=== PATIENT | male | born 1985 | race Caucasian/White ===

== ENCOUNTER 2017-07-16 23:43 | Emergency (ER) | payer OTHER ==
[~2017-07-16] VITALS: Ht 172.7 cm; Wt 81.6 kg
[~2017-07-16 23:43] MED LIST: KEFLEX500 MG PO; MOTRIN800 MG PO; ROBITUSSIN DM120 ML PO; TAMIFLU75 MG PO; ZITHROMAX Z PA250 MG PO
[2017-07-16] MEDS ORDERED: CLINDAMYCIN150 MG PO (23:54)
[2017-07-16] MEDS ORDERED: TYLENOL325 M1 PO (23:54)
[2017-07-16] MEDS ORDERED: NAPROSYN500 MG PO (23:54)
== END 2017-07-17 | disposition home or self-care (01) ==
LOC: ED 23:43
DX: K08.89 Other specified disorders of teeth and supporting structures (principal); Z98.890 Other specified postprocedural states; Z88.5 Allergy status to narcotic agent

== ENCOUNTER 2019-07-06 12:49 | Emergency (ER) | payer SELFPAY ==
[~2019-07-06] VITALS: Ht 180.3 cm; Wt 93.0 kg
[~2019-07-06 12:49] MED LIST changes: +CLARITIN10 MG PO; +CLINDAMYCIN150 MG PO; +FLONASE ALLERG9.9 ML NAS; +MUCINEX DM ER1 EACH PO; +NAPROSYN500 MG PO; +PREDNISONE10 MG PO; +TYLENOL325 M1 PO
[2019-07-06] MEDS ORDERED: TYLENOL325 M1 PO (13:57)
[2019-07-06] MEDS ORDERED: VALTREX1000 MG PO (13:57)
== END 2019-07-06 14:00 | disposition home or self-care (01) ==
LOC: ED 12:49
DX: B02.9 Zoster without complications (principal); Z88.5 Allergy status to narcotic agent; Z79.899 Other long term (current) drug therapy